=== PATIENT | female | born 1975 | race Caucasian/White ===

== ENCOUNTER 2017-01-21 10:34 | Emergency (ER) | payer OTHER ==
[~2017-01-21] VITALS: Ht 165.1 cm; Wt 70.3 kg
[~2017-01-21 10:34] MED LIST: FENTANYL1 EAC1 TD; HYDROMORPHONE HC2 MG PO; MULTIVITAMIN1 EAC2 PO; NABUMETONE500 MG PO; SAVELLA12.5 MG PO; TIZANIDINE HCL4 MG PO; TYLENOL REGULA325 MG PO
[2017-01-21 14:00] VITALS: BP 148/78
== END 2017-01-21 14:00 | disposition home or self-care (01) ==
LOC: EME 10:34
DX: R07.89 Other chest pain (principal); G89.29 Other chronic pain
CPT/HCPCS: 71020; 99281; 99284